=== PATIENT | female | born 1940 | race Caucasian/White ===

== ENCOUNTER 2017-02-18 18:22 | Emergency (ER) | payer BC ==
[2017-02-18 18:38] VITALS: BP 128/83; PULSE 81; TEMP 98.5; BMI 29.0
[2017-02-18] MEDS ORDERED: ACETAMINOPHEN 500 MG TABLET (FP) PO ONE (18:43)
--- NOTE | 2017-02-18 18:43 | PDOC ---
History of Present Illness - General History Source: Patient Exam Limitations: No Limitations - History of Present Illness Initial Comments: 02/18/17 18:50 Patient is a 76 year old female with a significant past medical history of Asthma, Bronchiectasis who presents to the ED with right sided flank pain beginning today around 5:30pm. Patient reports taking a nap this evening feeling fine, until she woke up with intense pain on her right flank. She report pain is a sharp pain that increases with intensity when inspiring. She reports SOB secondary to right flank pain. Patient reports slight pain when rotating her torso. Denies any injury to chest. Denies chest pain. Denies nausea, vomiting. Denies dizziness, headache. Denies any other symptoms. Allergies: Azithromycin. Penicillin. Social history: No smoking. No alcohol. No illicit drugs. Surgical history: No surgical history PMD: None <Lamonte Solis - Last Filed: 02/18/17 18:49> <Chelsea Juárez - Last Filed: 02/19/17 19:48> - General Chief Complaint: Pain Stated Complaint: RT SIDE RIB PAIN Time Seen by Provider: 02/18/17 18:42 Past History <Lamonte Solis - Last Filed: 02/18/17 18:49> - Past Medical History Psychiatric Problems: Yes - Psycho/Social/Smoking Cessation Hx Anxiety: No Suicidal Ideation: No Smoking History: Unknown if ever smoked Have you smoked in the past 12 months: No Information on smoking cessation initiated: No Hx Alcohol Use: No Drug/Substance Use Hx: No Substance Use Type: None <Chelsea Juárez - Last Filed: 02/19/17 19:48> - Past Medical History Allergies/Adverse Reactions: Allergies Allergy/AdvReac Type Severity Reaction Status Date / Time azithromycin [From Zithromax] Allergy Verified 02/18/17 18:23 Penicillins Allergy Rash Verified 02/18/17 18:23 Home Medications: Ambulatory Orders Albuterol Sulfate 02/18/17 Diltiazem 02/18/17 Dulera 100 Mcg/5 Mcg Inhaler 02/18/17 Escitalopram Oxalate 02/18/17 Losartan Potassium 02/18/17 Singulair 02/18/17 Wellbutrin - 02/18/17 Review of Systems - Review of Systems Able to Perform ROS?: Yes Comments:: 02/18/17 18:50 GENERAL/CONSTITUTIONAL: No fever or chills. No weakness. HEAD, EYES, EARS, NOSE AND THROAT: No change in vision. No ear pain or discharge. No sore throat. CARDIOVASCULAR: No chest pain or shortness of breath. RESPIRATORY: No cough, wheezing, or hemoptysis. GASTROINTESTINAL: No nausea, vomiting, diarrhea or constipation. GENITOURINARY: No dysuria, frequency, or change in urination. MUSCULOSKELETAL: +Right sided back pain. No joint or muscle swelling or pain. No neck pain. SKIN: No rash NEUROLOGIC: No headache, vertigo, loss of consciousness, or change in strength/ sensation. ENDOCRINE: No increased thirst. No abnormal weight change. HEMATOLOGIC/LYMPHATIC: No anemia, easy bleeding, or history of blood clots. ALLERGIC/IMMUNOLOGIC: No hives or skin allergy. All Other Systems: Reviewed and Negative <Lamonte Solis - Last Filed: 02/18/17 18:49> *Physical Exam - Vital Signs Last Vital Signs Temp Pulse Resp BP Pulse Ox 98.5 F 81 20 128/83 95 02/18/17 18:22 02/18/17 18:22 02/18/17 18:22 02/18/17 18:22 02/18/17 18:22 - Physical Exam Comments: 02/18/17 18:50 GENERAL: Awake, alert, and fully oriented, in no acute distress HEAD: No signs of trauma EYES: PERRLA, EOMI, sclera anicteric, conjunctiva clear ENT: Auricles normal inspection, hearing grossly normal, nares patent, oropharynx clear without exudates. Moist mucosa NECK: Normal ROM, supple, no lymphadenopathy, JVD, or masses LUNGS: Breath sounds equal, clear to auscultation bilaterally. No wheezes, and no crackles HEART: Regular rate and rhythm, normal S1 and S2, no murmurs, rubs or gallops MUSCULOSKELETAL: +RIght lower chest wall tenderness to palpation that produced pain. ABDOMEN: Soft, nontender, normoactive bowel sounds. No guarding, no rebound. No masses EXTREMITIES: Normal range of motion, no edema. No clubbing or cyanosis. No cords, erythema, or tenderness NEUROLOGICAL: AAOx3. Normal mood and affect. Cranial nerves II through XII grossly intact. Normal speech, normal gait SKIN: Warm, Dry, normal turgor, no rashes or lesions noted. <Lamonte Solis - Last Filed: 02/18/17 18:49> - Vital Signs Last Vital Signs Temp Pulse Resp BP Pulse Ox 98.5 F 81 20 128/83 95 02/18/17 18:22 02/18/17 18:22 02/18/17 18:22 02/18/17 18:22 02/18/17 18:22 <Chelsea Juárez - Last Filed: 02/19/17 19:48> Medical Decision Making - Medical Decision Making 02/19/17 19:45 Pt presents to the ED complaining of R sided chest anderson that awoke her from sleep this morning. Pain is very pleuritic, and is reproduced by palpation of the chest wall. Patient is concerned that she has broken a rib, but has no history of trauma. Some improvement after advil. Pain is very atypical for ACS , and is most consistent with costochondritis. Signed out to Dr. Grover pending CXR, EKG and re-evaluation. <Chelsea Juárez - Last Filed: 02/19/17 19:48> *DC/Admit/Observation/Transfer - Attestations Scribe Attestion: 02/18/17 18:51 Documentation prepared by Lamonte Solis, acting as caregivers non medical for Chelsea Juárez MD. <Lamonte Solis - Last Filed: 02/18/17 18:49> <Chelsea Juárez - Last Filed: 02/19/17 19:48> Diagnosis at time of Disposition: Rib pain - Discharge Dispostion Disposition: HOME Condition at time of disposition: Stable - Patient Instructions Printed Discharge Instructions: DI for Chest Pain Additional Instructions: Please follow up with your campus executive director within 2-3 days. Also, follow up with your primary care doctor/pole lift operator as soon as possible. Return to the emergency department immediately if you have any new, concerning, or worsening symptoms.
[2017-02-18] MEDS ORDERED: ACETAMINOPHEN 500 MG TABLET (FP) ONE (18:47)
--- NOTE | 2017-02-18 20:58 | PDOC ---
*Physical Exam - Vital Signs Last Vital Signs Temp Pulse Resp BP Pulse Ox 98.5 F 81 20 128/83 95 02/18/17 18:22 02/18/17 18:22 02/18/17 18:22 02/18/17 18:22 02/18/17 18:22 ED Treatment Course - Medications Given in the ED: ED Medications Discontinued Medications Generic Name Dose Route Start Last Admin Trade Name Dede PRN Reason Stop Dose Admin Acetaminophen 1,000 mg 02/18/17 18:43 02/18/17 19:05 Tylenol - PO 02/18/17 18:44 1,000 mg ONCE ONE Administration Medical Decision Making - Medical Decision Making 02/18/17 20:58 Pt signed out to me by Dr. Juárez at 1900. Briefly, pt with hx asthma, bronchiectasis p/w atraumatic R sided rib pain while putting together a vacuum earlier today. On my evaluation pt is pain free, and on exam has minimal ttp over the R mid-axillary 7th intercostal space, likely consistent with MSK pain. EKG non ischemic (NSR, rate 78, normal axis, no OZIEL). Due to the patient's age, ACS is always a thought but given the resolution of the pain w/o intervention and reproduciblity of the pain on exam, it is unlikely to be ACS. Non ischemic EKG and minimal risk factors also argue against ACS. I did offer the patient a set of cardiac enzymes just to be sure, however she declines and wishes to go home. Pt is aware to come back to our ED or any ED if she changes her mind or has any new, worsening, or concerning symptoms. 02/19/17 19:02 CXR shows possible R sided atelectasis vs infiltrate. There are no previous CXR' s to compare. Pt has no cough, fevers or crackles on exam to suggest infiltrate. Likely atelectasis in the setting of splinting from MSK pain vs bronchiectasis (pt has a history of bronchiectasis). I called the patient at to check in on her, she said her R sided rib pain improves with advil but comes back after a few hours. I advised the patient to follow up with her primary doctor tomorrow or to return to the emergency department if the pain is worse or if she has any new or concerning symptoms. She states that since she feels better, she will hold off and follow with her PMD tomorrow. *DC/Admit/Observation/Transfer Diagnosis at time of Disposition: Rib pain - Discharge Dispostion Disposition: HOME Condition at time of disposition: Stable Admit: No - Patient Instructions Printed Discharge Instructions: DI for Chest Pain Additional Instructions: Please follow up with your computing consultant within 2-3 days. Also, follow up with your primary care doctor/proposal coordinator as soon as possible. Return to the emergency department immediately if you have any new, concerning, or worsening symptoms. - Attestations Physician Attestion: 02/18/17 21:04 I, Dr. Lauren Grover MD, attest that this document has been prepared under my direction and personally reviewed by me in its entirety. I further attest, that it accurately reflects all work, treatment, procedures and medical decision -making performed by me.
--- NOTE | 2017-02-20 08:51 | EKG ---
Test Reason : Blood Pressure : / mmHG Vent. Rate : 078 BPM Atrial Rate : 078 BPM P-R Int : 160 ms QRS Dur : 074 ms QT Int : 402 ms P-R-T Axes : 041 -16 044 degrees QTc Int : 458 ms SINUS RHYTHM WITH SINUS ARRHYTHMIA NO PREVIOUS ECGS AVAILABLE Confirmed by YOVANI WATT MD ([id number]) on 02/20/2017 8:51:12 AM Referred By: KENDY Confirmed By:YOVANI WATT MD
== END 2017-02-18 21:11 | disposition home or self-care (01) ==
LOC: FER 18:22
DX: R07.81 Pleurodynia (principal); J45.909 Unspecified asthma, uncomplicated
CPT/HCPCS: 71020-TC; 93005; 99282-25